=== PATIENT | male | born 1960 | race Caucasian/White ===

== ENCOUNTER 2019-03-30 12:31 | Emergency (ER) | payer BC ==
[~2019-03-30] VITALS: Ht 175.3 cm; Wt 117.0 kg
[2019-03-30] MEDS ORDERED: FLEXERIL PO (12:59)
[2019-03-30] MEDS ORDERED: PREDNISONE 10 M10 MG PO (12:59)
[2019-03-30 13:12] VITALS: BP 152/78
== END 2019-03-30 13:14 | disposition home or self-care (01) ==
LOC: M.ERS 12:31
DX: M54.5 Low back pain (principal)